=== PATIENT | female | born 1965 | race Caucasian/White ===

== ENCOUNTER 2018-07-11 14:28 | Emergency (ER) | payer BC ==
[2018-07-11] MEDS ORDERED: ONDANSETRON 4 MG TAB.RAPDIS PO ONE (15:10)
--- NOTE | 2018-07-11 15:12 | ER Document Report ---
ED Medical Screen (RME) - General Chief Complaint: Chest Pain Stated Complaint: CHEST PAIN Time Seen by Provider: 07/11/18 15:06 Notes: 52 years old female with history of chronic pain syndrome due to lower back taking multiple narcotic medications, presents today with epigastric pain nausea and vomited a few times. And also complaining of pain over the left lower chest wall. No left arm numbness/difficulty in breathing. Appears to be sick, epigastric tenderness noted TRAVEL OUTSIDE OF THE [place] IN LAST 30 DAYS: No - Related Data Allergies/Adverse Reactions: No Known Allergies Allergy (Verified 07/11/18 14:29) Past Medical History Renal/ Medical History: Denies: Hx Peritoneal Dialysis Physical Exam - Vital signs Vitals: Temp Pulse Resp BP Pulse Ox 97.8 F 63 18 103/58 L 98 07/11/18 14:45 07/11/18 14:45 07/11/18 14:45 07/11/18 14:45 07/11/18 14:45 Course - Vital Signs Vital signs: Temp Pulse Resp BP Pulse Ox 97.8 F 63 18 103/58 L 98 07/11/18 14:45 07/11/18 14:45 07/11/18 14:45 07/11/18 14:45 07/11/18 14:45
[2018-07-11] MEDS ORDERED: FENTANYL CITRATE INJ/PF 100 MCG/2 ML AMPUL IV ONE (15:58)
[2018-07-11] MEDS ORDERED: ONDANSETRON HCL INJ/PF 4 MG/2 ML SDV IV ONE (15:58)
[2018-07-11] MEDS ORDERED: VANCOMYCIN HCL INJ 1000 MG VIAL IV ONE (15:59)
[2018-07-11] MEDS ORDERED: PIPERACILLIN/TAZOBACTAM 3.375 GM VIAL IV ONE (15:59)
--- NOTE | 2018-07-11 16:02 | RADIOLOGY REPORT (SQ) ---
EXAM DESCRIPTION: ACUTE ABDOMEN SERIES COMPLETED DATE/TIME: 07/11/2018 3:49 pm REASON FOR STUDY: Abdominal pain COMPARISON: None. NUMBER OF VIEWS: Three views. TECHNIQUE: Frontal chest, supine abdomen and upright/decubitus abdomen radiographic images acquired. LIMITATIONS: None. FINDINGS: CHEST: Lungs clear of infiltrates. FREE AIR: Free intraperitoneal air present under both hemidiaphragms. BOWEL GAS PATTERN: Nonobstructive pattern. No dilated loops or air fluid levels. CALCIFICATIONS: No suspicious calcifications. HARDWARE: Vena caval umbrella. SOFT TISSUES: No gross mass or suggestion of organomegaly. BONES: Spine hardware. OTHER: No other significant finding. IMPRESSION: Free intraperitoneal air indicating perforated viscus. COMMENT: Pertinent findings on the imaging study reported as a CRITICAL RESULT to emergency departm ent nurse. Patient not not yet admitted to the ED. At15:56 on 07/11/2018. Category of Critical Result: Free intraperitoneal air. Perforated viscus. TECHNICAL DOCUMENTATION: JOB ID: [id number] [employer]- All Rights Reserved Reading location - IP/workstation name: [email or web address]
[2018-07-11 16:24] LABS: ABSOLUTE LYMPHOCYTES (AUTO) 2.1 10^3/uL (0.5-4.7); ABSOLUTE MONOCYTES (AUTO) 0.6 10^3/uL (0.1-1.4); ABSOLUTE NEUT (AUTO) 10.9 10^3/uL (1.7-8.2); BASOPHILS % (AUTO) 0.3 % (0-2); EOSINOPHILS % (AUTO) 0.2 % (0-6); HEMATOCRIT 41.5 % (36.0-47.0); HEMOGLOBIN 13.9 g/dL (12.0-15.5); LYMPHOCYTES % (AUTO) 15.3 % (13-45); MEAN CORPUSCULAR HGB CONC 33.5 g/dL (32.0-36.0); MEAN CORPUSCULAR VOLUME 90 fl (80-97); MONOCYTES % (AUTO) 4.3 % (3-13); PLATELET COUNT 256 10^3/uL (150-450); RED BLOOD COUNT 4.63 10^6/uL (3.72-5.28); RED CELL DISTRIBUTION WIDTH 13.2 % (11.5-14.0); SEGMENTED NEUTROPHILS % (AUTO) 79.9 % (42-78); TOTAL CELLS COUNTED % (AUTO) 100 %; WHITE BLOOD COUNT 13.7 10^3/uL (4.0-10.5)
[2018-07-11 16:49] LABS: ALANINE AMINOTRANSFERASE 28 U/L (9-52); ALBUMIN 4.3 g/dL (3.5-5.0); ALKALINE PHOSPHATASE 104 U/L (38-126); ANION GAP 11 (5-19); ASPARTATE AMINO TRANSFERASE 27 U/L (14-36); BILIRUBIN,DIRECT 0.3 mg/dL (0.0-0.4); BILIRUBIN,TOTAL 0.5 mg/dL (0.2-1.3); BLOOD UREA NITROGEN 18 mg/dL (7-20); CALCIUM 9.6 mg/dL (8.4-10.2); CARBON DIOXIDE 31 mmol/L (22-30); CHLORIDE 104 mmol/L (98-107); GLUCOSE 126 mg/dL (75-110); LIPASE 60.9 U/L (23-300); SODIUM 145.9 mmol/L (137-145); TOTAL PROTEIN 8.1 g/dL (6.3-8.2)
[2018-07-11] MEDS ORDERED: NORMAL SALINE 1000 ML 1,000 ML IV ONE ×2 (17:13→17:14)
--- NOTE | 2018-07-11 17:52 | ER Document Report ---
ED General - General Chief Complaint: Chest Pain Stated Complaint: CHEST PAIN Time Seen by Provider: 07/11/18 15:06 Notes: Patient is complaining of severe pain in her upper abdomen and the upper sides of her abdomen that began a couple of hours ago. Patient was "fine" this morning when she awakened. She has had no preceding symptoms to the pain that came on suddenly. Subsequently, she has had some nausea and vomited. Patient is visiting here from [place]. Patient had bariatric surgery in [facility] in August of last fall. She has a [employer] filter in place. Patient has no other significant past medical history. Denies any history of ulcers. No history of diverticulitis or colitis. Currently, patient is not on any prescription medications. TRAVEL OUTSIDE OF THE [place] IN LAST 30 DAYS: No - Related Data Allergies/Adverse Reactions: No Known Allergies Allergy (Verified 07/11/18 14:29) Past Medical History - Social History Smoking Status: Current Every Day Smoker Family History: Reviewed & Not Pertinent Patient has suicidal ideation: No Patient has homicidal ideation: No Past Surgical History: Reports: Hx Gastric Bypass Surgery - August,., Other Review of Systems - Review of Systems Notes: REVIEW OF SYSTEMS: CONSTITUTIONAL : Denies fever. EENT: Denies eye, ear, nose or mouth or throat pain or other symptoms. CARDIOVASCULAR: Denies chest pain. RESPIRATORY: Denies cough, chest congestion, or shortness of breath. GASTROINTESTINAL: See HPI. GENITOURINARY: Denies difficulty or painful urinating, urinary frequency, blood in urine. MUSCULOSKELETAL: Denies back or neck pain. Denies joint pain or swelling. SKIN: Denies rash or skin lesions. NEUROLOGICAL: Denies LOC or altered mental status. Denies headache. Denies sensory loss or motor deficits. ALL OTHER SYSTEMS REVIEWED AND NEGATIVE. Physical Exam - Vital signs Vitals: Temp Pulse Resp BP Pulse Ox 97.8 F 63 18 103/58 L 98 07/11/18 14:45 07/11/18 14:45 07/11/18 14:45 07/11/18 14:45 07/11/18 14:45 Interpretation: Normal - Notes Notes: PHYSICAL EXAMINATION: GENERAL: Well-appearing, appears to be in pain. HEAD: Atraumatic, normocephalic. EYES: Pupils equal round and reactive to light, extraocular movements intact. ENT: oropharynx clear without exudates. Moist mucous membranes. NECK: Normal range of motion, supple. LUNGS: Breath sounds clear and equal bilaterally. HEART: Regular rate and rhythm without murmurs. ABDOMEN: Soft, tender across the upper abdomen, under the rib and sternal margins. BACK: No tenderness throughout entire back. EXTREMITIES: Normal range of motion without pain. NEUROLOGICAL: Normal speech. Normal sensory, motor, and reflex exams. Awake, alert, and oriented x3. Cranial nerves normal. PSYCH: Normal mood, normal affect. SKIN: Warm, dry, no rashes. Course - Re-evaluation Re-evalutation: 07/11/18 17:52 Patient had IV fluids started. She was given antibiotics. I contacted [facility] to speak with the bariatric surgeon about transferring the patient. Dr. Andrew accepted the patient in transfer, ED to ED. I then spoke with Dr. Estrada, ER physician who accepted the patient for transfer to their ED. Helicopter flight being evaluated. - Vital Signs Vital signs: Temp Pulse Resp BP Pulse Ox 97.8 F 63 9 L 115/64 96 07/11/18 14:45 07/11/18 14:45 07/11/18 16:10 07/11/18 16:10 07/11/18 16:10 - Laboratory Result Diagrams: 07/11/18 16:06 07/11/18 16:06 Laboratory results interpreted by me: 07/11/18 07/11/18 16:06 16:06 WBC 13.7 H Seg Neutrophils % 79.9 H Absolute Neutrophils 10.9 H Sodium 145.9 H Carbon Dioxide 31 H Glucose 126 H Discharge - Discharge Clinical Impression: Perforated abdominal viscus Condition: Stable Disposition: [facility]
[2018-07-11 17:59] VITALS: BP 111/64
--- NOTE | 2018-07-11 18:23 | RADIOLOGY REPORT (SQ) ---
EXAM DESCRIPTION: CT ABD/PELVIS WITH IV ONLY COMPLETED DATE/TIME: 07/11/2018 6:08 pm REASON FOR STUDY: Rule out pancreatitis, left side abd pain COMPARISON: Plain radiograph TECHNIQUE: CT scan of the abdomen and pelvis performed using helical scanning technique with dynamic intravenous contrast injection. No oral contrast. Images reviewed with lung, soft tissue, and bone windows. Reconstructed coronal and sagittal MPR images reviewed. Delayed images for evaluation of the urinary system also acquired. All images stored on PACS. All CT scanners at this facility use dose modulation, iterative reconstruction, and/or weight based d osing when appropriate to reduce radiation dose to as low as reasonably achievable (ALARA). [facility]: Dose Right [facility]: CareDose [facility]: Dose Right [facility]: Teradose 4D [facility]: [employer] CONTRAST TYPE AND DOSE: contrast/concentration: Isovue 350.00 mg/ml; Total Contrast Delivered: 99.0 ml; Total Saline Delivered: 62.0 ml RENAL FUNCTION: GFR > 60. RADIATION DOSE: CT Rad equipment meets quality standard of care and radiation dose reduction techniq ues were employed. CTDIvol: 15.9 - 19.2 mGy. DLP: 1943 mGy-cm.. LIMITATIONS: None. FINDINGS: LOWER CHEST: No significant findings. No nodules or infiltrates. LIVER: Normal size. No masses. No dilated ducts. Minimal fluid around the liver. SPLEEN: Normal size. No focal lesions. PANCREAS: No masses. No significant calcifications. No adjacent inflammation or peripancreatic fluid collections. Pancreatic duct not dilated. GALLBLADDER: Mildly distended. No stones. ADRENAL GLANDS: No significant masses or asymmetry. RIGHT KIDNEY AND URETER: No solid masses. No significant calcifications. No hydronephrosis or hyd roureter. LEFT KIDNEY AND URETER: No solid masses. No significant calcifications. No hydronephrosis or hydr oureter. AORTA AND VESSELS: No aneurysm. No dissection. Renal arteries, SMA, celiac without stenosis. Caval u mbrella. RETROPERITONEUM: No retroperitoneal adenopathy, hemorrhage or masses. BOWEL AND PERITONEAL CAVITY: There is generalize free intraperitoneal air primarily in the upper abdo men. Inflammatory changes seen along the stomach. Patient has history of prior gastric bypass. Sumi pect gastric perforation. Minimal free fluid in the pelvis and along the liver. APPENDIX: Not visualized. PELVIS: Some free fluid is identified. ABDOMINAL WALL: No masses. No hernias. BONES: Surgical changes in the spine. OTHER: No other significant finding. IMPRESSION: Free intraperitoneal air likely related to gastric perforation. Inflammatory changes along the stomach. Fluid along the liver and in the pelvis. COMMENT: Pertinent findings on the imaging study reported as a CRITICAL RESULT to Sebas Craig MD at 18:17 on 07/11/2018. Category of Critical Result: Perforated viscus TECHNICAL DOCUMENTATION: JOB ID: [id number] Quality ID # [id number]: Final reports with documentation of one or more dose reduction techniques (e.g., Au tomated exposure control, adjustment of the mA and/or kV according to patient size, use of iterative reconstruction technique) 2010 [employer]- All Rights Reserved Reading location - IP/workstation name: [email or web address]
== END 2018-07-11 18:15 | disposition short-term general hospital (02) ==
LOC: ER 14:28
DX: K63.1 Perforation of intestine (nontraumatic) (principal); R07.9 Chest pain, unspecified; R10.10 Upper abdominal pain, unspecified; R11.2 Nausea with vomiting, unspecified; Z98.84 Bariatric surgery status; F17.200 Nicotine dependence, unspecified, uncomplicated
CPT/HCPCS: 99285; 96375; 96365; 96367; 36415; 83690; 85025; 80053; 84484; 83605; 74022; 74177; J3010; J2405; J7030; J3370; J2543